=== PATIENT | female | born 2000 | race Caucasian/White ===

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

== ENCOUNTER → 2022-04-15 | Outpatient (CLI) | payer MEDICAID, OTHER ==
[2022-04-15 17:28] LABS: BASO % 0.3 % (0.0-1.0); EOS % 0.3 % (0.0-3.0); HEMATOCRIT 36.2 % (36.0-47.0); HEMOGLOBIN 12.3 g/dl (12.0-15.5); LYMPH # 1.2 10^3/uL (1.5-5.0); MEAN CORPUSCULAR VOLUME 91.2 fl (80.0-96.0); MONO # 0.5 10^3/uL (0.0-0.8); MONO % 5.5 % (2.0-8.0); NEUTROPHILS # 7.5 10^3/uL (1.5-8.5); NEUTROPHILS % 80.6 % (36.0-66.0); PLATELET COUNT, AUTOMATED 267 10^3/uL (150-450); RED BLOOD COUNT 3.97 10^6/uL (4.00-5.40); WHITE BLOOD COUNT 9.3 10^3/uL (4.0-10.0)
[2022-04-15 18:24] LABS: GC DNA AMPLIFICATION NEGATIVE (NEGATIVE)
[2022-04-15 18:53] LABS: HEPATITIS C VIRUS ABY INDEX < 0.0 INDEX (<0.8); HIV 1&2 SCREEN CENTAUR NEGATIVE (NEGATIVE)
== END ==
LOC: M PLALAB 15:21
PROVIDERS: ATTEND Specialist
DX: Z34.01 Encounter for supervision of normal first pregnancy, first trimester (principal)

== ENCOUNTER → 2022-05-31 | Outpatient (CLI) | payer OTHER | LOC: M WHC 14:09 | PROVIDERS: ATTEND Advanced Practice Midwife | DX: Z36.2 Encounter for other antenatal screening follow-up (principal); Z3A.19 19 weeks gestation of pregnancy ==

== ENCOUNTER → 2022-06-25 | Outpatient (REF) | payer OTHER ==
[2022-06-25 18:47] LABS: APPEARANCE, URINE MANUAL CLOUDY (CLEAR); COLOR, URINE MANUAL YELLOW (YELLOW)
[2022-06-25 18:48] LABS: BILIRUBIN, URINE MANUAL NEGATIVE (NEGATIVE); BLOOD URINE MANUAL TRACE (NEGATIVE); GLUCOSE, URINE (UA) MANUAL NEGATIVE (NEGATIVE); KETONE, URINE MANUAL NEGATIVE (NEGATIVE); LEUKOCYTE ESTERASE, URINE MAN POSITIVE (NEGATIVE); NITRITE, URINE MANUAL POSITIVE (NEGATIVE); PROTEIN, URINE MANUAL TRACE mg/dL (NEGATIVE); UROBILINOGEN, URINE MANUAL NORMAL (NORMAL)
[2022-06-25 19:52] LABS: BACTERIA, URINE LARGE AMOUNT; RBC, URINE 0-1 /hpf (0-3); SQUAMOUS EPITHELIAL CELL URINE SMALL AMOUNT /hpf (SMALL AMT); WBC, URINE TNTC /hpf (0-3)
== END ==
LOC: M SFHCWAGY 17:30
PROVIDERS: ATTEND Advanced Practice Midwife
DX: Z34.02 Encounter for supervision of normal first pregnancy, second trimester (principal)

== ENCOUNTER → 2022-07-11 | Outpatient (CLI) | payer OTHER | LOC: M WHC 14:36 | PROVIDERS: ATTEND Advanced Practice Midwife | DX: Z34.02 Encounter for supervision of normal first pregnancy, second trimester (principal) ==

== ENCOUNTER 2022-08-27 23:39 | Observation (INO) | payer OTHER ==
[~2022-08-27] VITALS: Ht 160 cm; Wt 58.3 kg
[2022-08-28] VITALS (12 sets, daily range): BP systolic 107–140; BP diastolic 56–86
[2022-08-28] MEDS ORDERED: TUMS500C PO (00:06)
[2022-08-28] MEDS ORDERED: PRENTAB9 PO (00:06)
[2022-08-28] MEDS ORDERED: HOME MED LIST COMPLETE! XX SCH (00:10)
[2022-08-28 00:51] LABS: APPEARANCE, URINE MANUAL CLEAR (CLEAR); COLOR, URINE MANUAL YELLOW (YELLOW)
[2022-08-28 00:57] LABS: BILIRUBIN, URINE MANUAL NEGATIVE (NEGATIVE); BLOOD URINE MANUAL TRACE (NEGATIVE); GLUCOSE, URINE (UA) MANUAL NEGATIVE (NEGATIVE); KETONE, URINE MANUAL NEGATIVE (NEGATIVE); LEUKOCYTE ESTERASE, URINE MAN TRACE (NEGATIVE); NITRITE, URINE MANUAL NEGATIVE (NEGATIVE); PROTEIN, URINE MANUAL NEGATIVE (NEGATIVE); UROBILINOGEN, URINE MANUAL NORMAL (NORMAL)
[2022-08-28 01:00] LABS: BACTERIA, URINE SMALL AMOUNT; SQUAMOUS EPITHELIAL CELL URINE MOD AMOUNT /hpf (SMALL AMT); TRANSITIONAL EPI CELLS, URINE SMALL AMOUNT /hpf
[2022-08-28 01:01] LABS: HYALINE CAST, URINE NONE SEEN /lpf (0-1); MUCUS, URINE SMALL AMOUNT (NEGATIVE)
[2022-08-28] MEDS ORDERED: BETAMETHASONE SOLUSPAN 6MG/ML 5ML VIAL IM SCH (03:15)
[2022-08-28 05:30] LABS: GC DNA AMPLIFICATION NEGATIVE (NEGATIVE)
[2022-08-28] MEDS ORDERED: ACETAMINOPHEN TAB 650MG DOSE (2X325MG) PO ONE (19:20)
[2022-08-29] MEDS ORDERED: ACET325C5 PO (10:27)
[2022-08-29] MEDS ORDERED: PROG1CAP8 VG (10:37)
== END 2022-08-29 10:38 | disposition home or self-care (01) ==
LOC: M LDO 23:39 → M LDI 23:40 → M LDO 08-28 03:11 → UNDOADMOB 08-28 03:12 → M LDI 08-28 03:12 → M LDO 08-28 03:12 → M LDI 08-28 19:27 → UNDODISOB 08-29 10:38
PROVIDERS: ADMIT Obstetrics & Gynecology; ATTEND Obstetrics & Gynecology
DX: O26.873 Cervical shortening, third trimester (principal); O60.03 Preterm labor without delivery, third trimester; Z3A.31 31 weeks gestation of pregnancy
CPT/HCPCS: 59025; 76815; 76820; 81000; 82731; 87081; 87086; 87810; 87850; 96372; G0463; J0702

== ENCOUNTER 2022-08-29 10:05 | Outpatient (CLI) | payer OTHER ==
[~2022-08-29] VITALS: Ht 160 cm; Wt 58.8 kg
[~2022-08-29 10:05] MED LIST: PRENTAB9 PO; TUMS500C PO
[2022-08-29 10:19] VITALS: BP 127/59
[2022-08-29] MEDS ORDERED: BETAMETHASONE SOLUSPAN 6MG/ML 5ML VIAL IM ONE (10:20)
[2022-08-29] MEDS ORDERED: ACET325C5 PO (10:27)
[2022-08-29] MEDS ORDERED: PROG1CAP8 VG (10:37)
== END 2022-08-29 10:42 | disposition home or self-care (01) ==
LOC: M LDO 10:05
PROVIDERS: ATTEND Obstetrics & Gynecology
DX: O26.873 Cervical shortening, third trimester (principal); Z3A.31 31 weeks gestation of pregnancy
CPT/HCPCS: 59025; 96372; G0463

== ENCOUNTER 2022-09-08 01:46 | Outpatient (CLI) | payer OTHER ==
[~2022-09-08] VITALS: Ht 162.6 cm; Wt 57.8 kg
[~2022-09-08 01:46] MED LIST changes: +ACET325C5 PO; +PROG1CAP8 VG
[2022-09-08 02:16] VITALS: BP 114/68
== END 2022-09-08 03:50 | disposition home or self-care (01) ==
LOC: M LDO 01:46
PROVIDERS: ATTEND Obstetrics & Gynecology
DX: O26.893 Other specified pregnancy related conditions, third trimester (principal); R10.2 Pelvic and perineal pain; M54.50 Low back pain, unspecified; O26.872 Cervical shortening, second trimester; Z3A.32 32 weeks gestation of pregnancy
CPT/HCPCS: 59025; 76815; G0463

== ENCOUNTER → 2022-09-12 | Outpatient (CLI) | payer OTHER ==
[2022-09-12 13:48] LABS: HEMATOCRIT 33.1 % (36.0-47.0); HEMOGLOBIN 10.7 g/dl (12.0-15.5); MEAN CORPUSCULAR HGB CONC 32.3 g/dl (32.0-36.5); MEAN CORPUSCULAR VOLUME 92.7 fl (80.0-96.0); PLATELET COUNT, AUTOMATED 199 10^3/uL (150-450); RED BLOOD COUNT 3.57 10^6/uL (4.00-5.40); WHITE BLOOD COUNT 8.6 10^3/uL (4.0-10.0)
== END ==
LOC: M PLALAB 11:01
PROVIDERS: ATTEND Advanced Practice Midwife
DX: Z34.02 Encounter for supervision of normal first pregnancy, second trimester (principal)

== ENCOUNTER 2022-09-25 07:24 | Inpatient (IN) | payer OTHER ==
[~2022-09-25] VITALS: Ht 162.6 cm; Wt 58.9 kg
[2022-09-25] VITALS (32 sets, daily range): BP systolic 109–172; BP diastolic 60–99
[2022-09-25] MEDS ORDERED: ROBI1LIQ9 PO (07:50)
[2022-09-25] MEDS ORDERED: LACTATED RINGER'S 1000 ML IV STA (08:06)
[2022-09-25] MEDS ORDERED: CARBOPROST TROMETHAMINE 250 MCG/ML AMP IM PRN (08:10)
[2022-09-25] MEDS ORDERED: OXYTOCIN DRIP 30 UNITS in IV 1 EA IV PRN ×4 (08:10)
[2022-09-25] MEDS ORDERED: LIDOCAINE 1% MDV 20ML VIAL INFIL PRN (08:10)
[2022-09-25] MEDS ORDERED: METHYLERGONOVINE MALEATE 0.2MG/ML 1ML VIAL IM PRN (08:10)
[2022-09-25] MEDS ORDERED: OXYTOCIN INJ 10UNITS/ML 1ML VIAL IM PRN (08:10)
[2022-09-25] MEDS ORDERED: TRANEXAMIC ACID INJection 1,000 MG in NS 100 ML IV PRN (08:10)
[2022-09-25] MEDS ORDERED: BETAMETHASONE SOLUSPAN 6MG/ML 5ML VIAL IM ONE (08:15)
[2022-09-25] MEDS ORDERED: HOME MED LIST COMPLETE! XX SCH (08:20)
[2022-09-25 09:04] LABS: HEMATOCRIT 34.6 % (36.0-47.0); HEMOGLOBIN 11.6 g/dl (12.0-15.5); MEAN CORPUSCULAR HEMOGLOBIN 30.5 pg (27.0-33.0); MEAN CORPUSCULAR HGB CONC 33.5 g/dl (32.0-36.5); MEAN CORPUSCULAR VOLUME 91.1 fl (80.0-96.0); PLATELET COUNT, AUTOMATED 190 10^3/uL (150-450); WHITE BLOOD COUNT 7.1 10^3/uL (4.0-10.0)
[2022-09-25] MEDS: LR 1,000 ML IV SCH ×2 (10:06→16:02)
[2022-09-25] MEDS ORDERED: ePHEDrine SULFATE 25 MG/5 ML(5MG/ML) SYRINGE IVP PRN (10:25)
[2022-09-25] MEDS ORDERED: LR 500 ML IV PRN (10:25)
[2022-09-25] MEDS ORDERED: diphenhydrAMINE 50MG/ML VIAL IV PRN (10:25)
[2022-09-25] MEDS ORDERED: NALOXONE INJ 0.4MG/1ML VIAL IV PRN (10:25)
[2022-09-25] MEDS ORDERED: ONDANSETRON 4MG 2ML VIAL IV PRN (10:25)
[2022-09-25] MEDS ORDERED: EPIDURAL/PCA KEYS XX PRN (10:25)
[2022-09-25] MEDS ORDERED: FENTANYL 2MCG/ML ROPIVACAINE 0.2% IN 0.9% NACL 100ML IVBAG As Ordered ONE (10:37)
[2022-09-25] MEDS: FENTANYL/ROPIVACAINE/NACL BAG 100 ML EPIDURAL SCH ×2 (10:42→16:02)
[2022-09-25] MEDS ORDERED: PEN G POT 3,000,000 UNIT/50 ML 3,000,000 UNIT in IV 1 EA IV SCH (12:10)
[2022-09-25] MEDS ORDERED: ACETAMINOPHEN TAB 650MG DOSE (2X325MG) PO PRN (19:20)
[2022-09-25] MEDS ORDERED: OXYTOCIN DRIP 30 UNITS in IV 1 EA IV SCH (19:20)
[2022-09-25] MEDS ORDERED: RHOGAM 300MCG (1500IU) INJ IM SCH (19:20)
[2022-09-25] MEDS ORDERED: DIBUCAINE 1% OINTMENT 30GM TOP PRN (19:20)
[2022-09-25] MEDS ORDERED: DOCUSATE SODIUM 100MG CAPSULE PO PRN (19:20)
[2022-09-25] MEDS ORDERED: METHYLERGONOVINE MALEATE 0.2 MG TAB PO PRN (19:20)
[2022-09-25] MEDS ORDERED: IBUPROFEN 600MG TAB PO PRN (19:20)
[2022-09-25] MEDS: IBUPROFEN 800 MG TAB PO PRN (19:32)
[2022-09-26] MEDS: ACETAMINOPHEN 500 MG TAB PO PRN ×2 (00:11→08:30)
[2022-09-26 06:00] VITALS: BP 120/78
[2022-09-26] MEDS: IBUPROFEN 800 MG TAB PO PRN (08:30)
[2022-09-26] MEDS: PRENATAL VITAMINS CHEWABLE TABLET PO SCH (08:58)
[2022-09-26] MEDS ORDERED: INFLUENZA QUADRIVALENT PF VACCINE 0.5ML SYRINGE IM.IMMUN ONE (09:00)
[2022-09-26 18:00] VITALS: BP 108/68
[2022-09-27 06:00] VITALS: BP 123/68
[2022-09-27 07:15] VITALS: BP 114/72
[2022-09-27] MEDS: PRENATAL VITAMINS CHEWABLE TABLET PO SCH (08:51)
[2022-09-27] MEDS ORDERED: MEASLES,MUMPS,RUBELLA VACCINE INJ (MMR-II) SC.IMMUN ONE (09:00)
== END 2022-09-27 11:40 | disposition home or self-care (01) | DRG 560 ==
LOC: M LDO 07:24 → M LDI 08:02 → M OBS 20:31
PROVIDERS: ADMIT Advanced Practice Midwife; ATTEND Advanced Practice Midwife
PROC: 10E0XZZ Delivery of Products of Conception, External Approach (ICD-10-PCS; principal; 2022-09-25)
PROC: 0HQ9XZZ Repair Perineum Skin, External Approach (ICD-10-PCS; 2022-09-25)
PROC: 10907ZC Drainage of Amniotic Fluid, Therapeutic from Products of Conception, Via Natural or Artificial Opening (ICD-10-PCS; 2022-09-25)
DX: O60.23X0 Term delivery with preterm labor, third trimester, not applicable or unspecified (principal); O70.0 First degree perineal laceration during delivery; Z3A.35 35 weeks gestation of pregnancy; Z37.0 Single live birth

== ENCOUNTER → 2023-08-12 | Outpatient (REF) | payer OTHER ==
[~2023-08-12] MED LIST changes: +ROBI1LIQ9 PO
== END ==
LOC: M PLALAB 15:58
PROVIDERS: ATTEND Specialist
DX: R30.0 Dysuria (principal)

== ENCOUNTER → 2023-09-04 | Outpatient (CLI) | payer OTHER | LOC: M WHC 14:28 | PROVIDERS: ATTEND Advanced Practice Midwife | DX: O09.893 Supervision of other high risk pregnancies, third trimester (principal); Z3A.29 29 weeks gestation of pregnancy ==

== ENCOUNTER → 2023-09-13 | Outpatient (REF) | payer OTHER | LOC: M LAB REF 17:45 | PROVIDERS: ATTEND Physician Assistant Medical | DX: B34.9 Viral infection, unspecified (principal) ==

== ENCOUNTER 2023-09-28 01:14 | Inpatient (IN) | payer OTHER ==
[~2023-09-28] VITALS: Ht 162.6 cm; Wt 55.7 kg
[2023-09-28] VITALS (45 sets, daily range): BP systolic 94–148; BP diastolic 55–88; O2SAT 99–100
[2023-09-28] MEDS ORDERED: METHYLERGONOVINE MALEATE 0.2MG/ML 1ML VIAL IM PRN (02:20)
[2023-09-28] MEDS ORDERED: CARBOPROST TROMETHAMINE 250 MCG/ML AMP IM PRN (02:20)
[2023-09-28] MEDS ORDERED: OXYTOCIN DRIP 30 UNITS in IV 1 EA IV PRN (02:20)
[2023-09-28] MEDS: NIFEdipine 10 MG CAP PO ONE ×2 (02:34→04:36)
[2023-09-28] MEDS: BETAMETHASONE SOLUSPAN 6MG/ML 5ML VIAL IM SCH (02:36)
[2023-09-28] MEDS: PENICILLIN G POTASSIUM 5 MU IV 5 MU in D5W MINI-BAG PLUS 100 ML IV ONE (02:38)
[2023-09-28 02:45] LABS: HEMATOCRIT 27.8 % (36.0-47.0); HEMOGLOBIN 8.8 g/dl (12.0-15.5); MEAN CORPUSCULAR HEMOGLOBIN 27.1 pg (27.0-33.0); MEAN CORPUSCULAR HGB CONC 31.7 g/dl (32.0-36.5); MEAN CORPUSCULAR VOLUME 85.5 fl (80.0-96.0); PLATELET COUNT, AUTOMATED 265 10^3/uL (150-450); RED BLOOD COUNT 3.25 10^6/uL (4.00-5.40)
[2023-09-28] MEDS ORDERED: diphenhydrAMINE 50MG/ML VIAL IV PRN (03:15)
[2023-09-28] MEDS ORDERED: ePHEDrine SULFATE 25 MG/5 ML(5MG/ML) SYRINGE IVP PRN (03:15)
[2023-09-28] MEDS ORDERED: EPIDURAL/PCA KEYS XX PRN (03:15)
[2023-09-28] MEDS ORDERED: ONDANSETRON 4MG 2ML VIAL IV PRN (03:15)
[2023-09-28] MEDS ORDERED: NALOXONE INJ 0.4MG/1ML VIAL IV PRN (03:15)
[2023-09-28] MEDS: FENTANYL/ROPIVACAINE/NACL BAG 100 ML EPIDURAL SCH (03:19)
[2023-09-28] MEDS: LR 500 ML IV PRN (03:22)
[2023-09-28 03:36] LABS: HIV 1&2 SCREEN NEGATIVE (NEGATIVE)
[2023-09-28] MEDS: PEN G POT 3,000,000 UNIT/50 ML 3,000,000 UNIT in IV 1 EA IV SCH (06:42)
[2023-09-28] MEDS: LR 1,000 ML IV SCH (08:26)
[2023-09-28 09:34] LABS: CORD GAS ABE A -3.3; CORD GAS ABE V -1.2; CORD GAS HCO3 A 25.1 MMOL/L; CORD GAS O2 SAT A 25.4 %; CORD GAS O2 SAT V 66.4 %; CORD GAS PCO2 A 58.9 mmHg; CORD GAS PCO2 V 41.8 mmHg; CORD GAS PH A 7.247 UNITS; CORD GAS PH V 7.376 UNITS; CORD GAS PO2 A 14.5 mmHg; CORD GAS PO2 V 26.4 mmHg; CORD GAS SBC V 22.8 MMOL/L; CORD GAS TCO2 A 26.9 MMOL/L; CORD GAS TCO2 V 25.2 MMOL/L
[2023-09-28] MEDS: TRANEXAMIC ACID INJection 1,000 MG in NS 100 ML IV PRN (09:39)
[2023-09-28] MEDS: OXYTOCIN DRIP 30 UNITS in IV 1 EA IV PRN (09:39)
[2023-09-28] MEDS ORDERED: METHYLERGONOVINE MALEATE 0.2 MG TAB PO PRN (09:40)
[2023-09-28] MEDS ORDERED: DIBUCAINE 1% OINTMENT 30GM TOP PRN (09:40)
[2023-09-28] MEDS ORDERED: DOCUSATE SODIUM 100MG CAPSULE PO PRN (09:40)
[2023-09-28] MEDS: OXYTOCIN DRIP 30 UNITS in IV 1 EA IV SCH (10:30)
[2023-09-28] MEDS: IBUPROFEN 600MG TAB PO PRN (10:37)
[2023-09-28] MEDS: PRENATAL VITAMINS CHEWABLE TABLET PO SCH (10:37)
[2023-09-28] MEDS: ACETAMINOPHEN 500 MG TAB PO PRN (10:37)
[2023-09-29 06:00] VITALS: BP 122/59; O2SAT 99
[2023-09-29 06:59] LABS: HEMATOCRIT 24.4 % (36.0-47.0); HEMOGLOBIN 7.7 g/dl (12.0-15.5); MEAN CORPUSCULAR HEMOGLOBIN 27.2 pg (27.0-33.0); MEAN CORPUSCULAR HGB CONC 31.6 g/dl (32.0-36.5); MEAN CORPUSCULAR VOLUME 86.2 fl (80.0-96.0); PLATELET COUNT, AUTOMATED 225 10^3/uL (150-450); RED BLOOD COUNT 2.83 10^6/uL (4.00-5.40); WHITE BLOOD COUNT 12.1 10^3/uL (4.0-10.0)
[2023-09-29] MEDS: BOOSTRIX VACCINE (TETANUS/DIPHTH/ACEL. PERTUSSIS) 0.5ML SYR IM.IMMUN ONE (12:29)
[2023-09-29 18:00] VITALS: BP 119/67; O2SAT 99
[2023-09-30 06:00] VITALS: BP 114/56; O2SAT 98
[2023-09-30] MEDS: MEASLES,MUMPS,RUBELLA VACCINE INJ (MMR-II) SC.IMMUN ONE (07:37)
[2023-09-30] MEDS: RHOGAM 300MCG (1500IU) INJ IM SCH (07:38)
== END 2023-09-30 11:30 | disposition home or self-care (01) | DRG 560 ==
LOC: M LDO 01:14 → M LDI 02:16 → M OBS 11:42
PROVIDERS: ADMIT Obstetrics & Gynecology; ATTEND Obstetrics & Gynecology
PROC: 10E0XZZ Delivery of Products of Conception, External Approach (ICD-10-PCS; principal; 2023-09-28)
PROC: 10907ZC Drainage of Amniotic Fluid, Therapeutic from Products of Conception, Via Natural or Artificial Opening (ICD-10-PCS; 2023-09-28)
DX: O60.14X0 Preterm labor third trimester with preterm delivery third trimester, not applicable or unspecified (principal); O45.93 Premature separation of placenta, unspecified, third trimester; O32.6XX0 Maternal care for compound presentation, not applicable or unspecified; Z3A.33 33 weeks gestation of pregnancy; O69.81X0 Labor and delivery complicated by cord around neck, without compression, not applicable or unspecified; Z37.0 Single live birth

== ENCOUNTER 2024-04-17 21:25 | Emergency (ER) | payer OTHER ==
[~2024-04-17] VITALS: Ht 162.6 cm; Wt 45.4 kg
[2024-04-17 21:32] VITALS: BP 106/64; TEMP 98.2; O2SAT 99
== END 2024-04-18 01:30 | disposition left against medical advice (07) ==
LOC: M ED 21:25
DX: Z53.21 Procedure and treatment not carried out due to patient leaving prior to being seen by health care provider (principal)

== ENCOUNTER 2024-09-28 20:53 | Outpatient (CLI) | payer OTHER ==
[2024-09-28 21:37] LABS: KETONE, URINE MANUAL REFLEX NEGATIVE (NEGATIVE); NITRITE, URINE MANUAL RFX NEGATIVE (NEGATIVE); PROTEIN, URINE MANUAL REFLEX TRACE mg/dL (NEGATIVE); SP GRAVITY,URINE MANUAL REFLEX 1.015 (1.002-1.035); UROBILINOGEN, UA MANUAL REFLEX 1 MG mg/dl (NORMAL)
[2024-09-28 21:51] LABS: SQUAMOUS EPITHELIAL URINE RFX LARGE AMOUNT /hpf (SMALL AMT)
[2024-09-28 21:52] LABS: HYALINE CAST, URINE RFX 0-1 /lpf (0-1); MICROSCOPIC EXAM RFX PERFORMED; MUCUS, URINE REFLEX LARGE AMOUNT (NEGATIVE)
== END 2024-09-28 22:15 | disposition home or self-care (01) ==
LOC: M LDO 20:53
PROVIDERS: ATTEND Specialist
DX: O26.893 Other specified pregnancy related conditions, third trimester (principal); O32.1XX0 Maternal care for breech presentation, not applicable or unspecified; O09.33 Supervision of pregnancy with insufficient antenatal care, third trimester; R10.84 Generalized abdominal pain; Z87.51 Personal history of pre-term labor; Z3A.30 30 weeks gestation of pregnancy
CPT/HCPCS: 59025; 76815; 81000; 81015; G0463

== ENCOUNTER 2024-10-04 19:24 | Outpatient (CLI) | payer OTHER ==
[~2024-10-04] VITALS: Ht 162.6 cm; Wt 53.6 kg
[2024-10-04 19:39] VITALS: BP 114/62
[2024-10-04 21:00] LABS: AMORPHOUS SEDIMENT SMALL (NEGATIVE); APPEARANCE, URINE HAZY (CLEAR); BACTERIA, URINE AUTO NEGATIVE (NEGATIVE); BILIRUBIN, URINE AUTO NEGATIVE (NEGATIVE); BLOOD, URINE BLOOD NEGATIVE (NEGATIVE); COLOR, URINE YELLOW (YELLOW); GLUCOSE, URINE (UA) AUTO NEGATIVE (NEGATIVE); KETONE, URINE AUTO NEGATIVE (NEGATIVE); LEUKOCYTE ESTERASE, URINE AUTO NEGATIVE (NEGATIVE); MUCUS, URINE SMALL (NEGATIVE); NITRITE, URINE AUTO NEGATIVE (NEGATIVE); PROTEIN, URINE AUTO NEGATIVE (NEGATIVE); RBC, URINE AUTO 0 /HPF (0-3); SPECIFIC GRAVITY URINE AUTO 1.024 (1.002-1.035); SQUAMOUS EPITHELIAL CELL UR AU 1 /HPF (0-6); WBC, URINE AUTO 0 /HPF (0-3)
== END 2024-10-04 20:50 | disposition home or self-care (01) ==
LOC: M LDO 19:24
PROVIDERS: ATTEND Advanced Practice Midwife
DX: O47.03 False labor before 37 completed weeks of gestation, third trimester (principal); O09.213 Supervision of pregnancy with history of pre-term labor, third trimester; Z3A.31 31 weeks gestation of pregnancy
CPT/HCPCS: 59025; 81001; 87081; 87086; G0463

== ENCOUNTER 2024-10-26 14:06 | Outpatient (CLI) | payer OTHER ==
[~2024-10-26] VITALS: Ht 165.1 cm; Wt 54.2 kg
[~2024-10-26 14:06] MED LIST changes: -ALBUTEROL SULFATE 2.5MG/0.5ML INH NEB SOLN INH PRN; -EPINEPHrine INJ 1 MG/ML 1ML AMP IM PRN; -LEXA1TAB PO; -diphenhydrAMINE 50MG/ML VIAL IV PRN; -methylPREDNISolone 125MG 2ML VIAL IV PRN
[2024-10-26 14:28] VITALS: BP 98/57
[2024-10-26] MEDS ORDERED: LEXA1TAB PO (14:30)
[2024-10-26] MEDS ORDERED: HOME MED LIST COMPLETE! XX SCH (14:30)
[2024-10-26] MEDS: LR 1,000 ML IV SCH (14:50)
[2024-10-26 15:11] VITALS: BP 97/54
[2024-10-26] MEDS: LACTATED RINGER'S 1000 ML IV STA (15:29)
[2024-10-26 18:56] LABS: HEMOGLOBIN 9.6 g/dl (12.0-15.5); MEAN CORPUSCULAR HEMOGLOBIN 25.1 pg (27.0-33.0); MEAN CORPUSCULAR VOLUME 81.2 fl (80.0-96.0); PLATELET COUNT, AUTOMATED 281 10^3/uL (150-450); RED BLOOD COUNT 3.82 10^6/uL (4.00-5.40); WHITE BLOOD COUNT 13.9 10^3/uL (4.0-10.0)
[2024-10-26 19:35] LABS: HIV 1&2 SCREEN NEGATIVE (NEGATIVE)
[2024-10-26 19:44] LABS: HEPATITIS C VIRUS ABY INDEX 0.04 INDEX (<0.8)
== END 2024-10-26 19:35 | disposition home or self-care (01) ==
LOC: M LDO 14:06
PROVIDERS: ATTEND Specialist
DX: O99.283 Endocrine, nutritional and metabolic diseases complicating pregnancy, third trimester (principal); O21.2 Late vomiting of pregnancy; O32.1XX0 Maternal care for breech presentation, not applicable or unspecified; O09.33 Supervision of pregnancy with insufficient antenatal care, third trimester; O09.213 Supervision of pregnancy with history of pre-term labor, third trimester; O26.893 Other specified pregnancy related conditions, third trimester; O99.013 Anemia complicating pregnancy, third trimester; O9A.213 Injury, poisoning and certain other consequences of external causes complicating pregnancy, third trimester; T50.995A Adverse effect of other drugs, medicaments and biological substances, initial encounter; E86.0 Dehydration; R25.2 Cramp and spasm; D50.9 Iron deficiency anemia, unspecified; Z3A.34 34 weeks gestation of pregnancy; Z87.891 Personal history of nicotine dependence; Y92.9 Unspecified place or not applicable; Y93.9 Activity, unspecified; Y99.9 Unspecified external cause status
CPT/HCPCS: 59025; 85027; 86780; 86803; 86850; 86900; 86901; 87340; 87389; G0463

== ENCOUNTER → 2024-10-26 | Outpatient (CLI) | payer OTHER ==
[~2024-10-26] VITALS: Ht 162.6 cm; Wt 54.0 kg
[~2024-10-26] MED LIST changes: +ALBUTEROL SULFATE 2.5MG/0.5ML INH NEB SOLN INH PRN; +EPINEPHrine INJ 1 MG/ML 1ML AMP IM PRN; +LEXA1TAB PO; +diphenhydrAMINE 50MG/ML VIAL IV PRN; +methylPREDNISolone 125MG 2ML VIAL IV PRN
[2024-10-26 08:00] VITALS: BP 127/68; O2SAT 100
[2024-10-26] MEDS: IRON SUCROSE 500 MG in NS 250 ML OVER 4 HRS IV ONE (08:49)
[2024-10-26 10:00] VITALS: BP 108/55; O2SAT 98
[2024-10-26 11:00] VITALS: BP 110/61; O2SAT 97
[2024-10-26 12:00] VITALS: BP 114/70; O2SAT 99
[2024-10-26 13:09] VITALS: BP 112/58; O2SAT 97
== END ==
LOC: M INFU 07:46
PROVIDERS: ATTEND Specialist
DX: D64.9 Anemia, unspecified (principal)
CPT/HCPCS: 96365; 96366; J1756

== ENCOUNTER 2024-10-30 18:41 | Outpatient (CLI) | payer OTHER ==
[~2024-10-30] VITALS: Ht 165.1 cm; Wt 55.3 kg
[~2024-10-30 18:41] MED LIST changes: +LEXA1TAB PO
[2024-10-30 18:55] VITALS: BP 104/64
[2024-10-30 20:48] LABS: KETONE, URINE AUTO RFX NEGATIVE (NEGATIVE); LEUKOCYTE ESTERASE UR AUTO RFX NEGATIVE (NEGATIVE); MUCUS, URINE RFX LARGE (NEGATIVE); NITRITE, URINE AUTO RFX NEGATIVE (NEGATIVE); RBC, URINE AUTO RFX 2 /HPF (0-3); SQUAM EPITHELIAL CELL UR AURFX 2 /HPF (0-6); WBC, URINE AUTO RFX 2 /HPF (0-3)
[2024-10-30 21:11] VITALS: BP 99/52
[2024-10-30] MEDS: ONDANSETRON 4MG ORAL DISINTEGRATING TAB PO ONE (21:24)
== END 2024-10-30 21:13 | disposition home or self-care (01) ==
LOC: M LDO 18:41
PROVIDERS: ATTEND Obstetrics & Gynecology
DX: O26.893 Other specified pregnancy related conditions, third trimester (principal); O09.213 Supervision of pregnancy with history of pre-term labor, third trimester; O09.33 Supervision of pregnancy with insufficient antenatal care, third trimester; R11.0 Nausea; R42 Dizziness and giddiness; Z3A.35 35 weeks gestation of pregnancy
CPT/HCPCS: 59025; 81001; G0463

== ENCOUNTER → 2024-11-03 | Outpatient (REF) | payer OTHER | LOC: M SFHCWAGY 17:09 | PROVIDERS: ATTEND Specialist | DX: Z36.85 Encounter for antenatal screening for Streptococcus B (principal); Z3A.36 36 weeks gestation of pregnancy ==

== ENCOUNTER 2024-11-08 00:33 | Outpatient (CLI) | payer OTHER ==
[~2024-11-08] VITALS: Ht 162.6 cm; Wt 54.4 kg
[2024-11-08 00:48] VITALS: BP 99/65
[2024-11-08] MEDS: FAMOTIDINE 20 MG TAB PO ONE (01:43)
[2024-11-08] MEDS ORDERED: HOME MED LIST COMPLETE! XX SCH (01:45)
[2024-11-08 05:58] VITALS: BP 108/75
[2024-11-16] MEDS ORDERED: ACET-683 PO (08:24)
== END 2024-11-08 06:20 | disposition home or self-care (01) ==
LOC: M LDO 00:33
PROVIDERS: ATTEND Specialist
DX: O47.03 False labor before 37 completed weeks of gestation, third trimester (principal); O09.213 Supervision of pregnancy with history of pre-term labor, third trimester; O32.1XX0 Maternal care for breech presentation, not applicable or unspecified; O09.33 Supervision of pregnancy with insufficient antenatal care, third trimester; Z3A.36 36 weeks gestation of pregnancy
CPT/HCPCS: 59025; G0463

== ENCOUNTER 2024-11-17 22:15 | Inpatient (IN) | payer OTHER ==
[~2024-11-17] VITALS: Ht 162.6 cm; Wt 54.8 kg
[~2024-11-17 22:15] MED LIST changes: +ACET-683 PO
[2024-11-17 22:30] VITALS: BP 111/68
[2024-11-17] MEDS ORDERED: OXYTOCIN INJ 10UNITS/ML 1ML VIAL IM PRN (22:40)
[2024-11-17] MEDS: ceFAZolin SODIUM 2 GM in DEXTROSE 5% (D5W) ADV/MINI-BAG 50 ML IV ONE (22:40)
[2024-11-17] MEDS ORDERED: METHYLERGONOVINE MALEATE 0.2MG/ML 1ML VIAL IM PRN (22:40)
[2024-11-17] MEDS ORDERED: CARBOPROST TROMETHAMINE 250 MCG/ML AMP IM PRN (22:40)
[2024-11-17] MEDS ORDERED: OXYTOCIN DRIP 30 UNITS in IV 1 EA IV PRN (22:40)
[2024-11-17] MEDS: LR 1,000 ML IV SCH ×2 (22:40→23:35)
[2024-11-17] MEDS ORDERED: TRANEXAMIC ACID INJection 1,000 MG in NS 100 ML IV PRN (22:40)
[2024-11-17] MEDS: AZITHROMYCIN INJ 500 MG, VIAL MATE ADAPTER 1 EACH in NS 250 ML IV ONE (22:58)
[2024-11-17] MEDS: BICITRA 30ML SOLN UDC PO ONE (23:02)
[2024-11-17] MEDS: LACTATED RINGER'S 1000 ML IV STA (23:02)
[2024-11-17 23:03] LABS: HEMATOCRIT 33.5 % (36.0-47.0); HEMOGLOBIN 10.7 g/dl (12.0-15.5); MEAN CORPUSCULAR HGB CONC 31.9 g/dl (32.0-36.5); MEAN CORPUSCULAR VOLUME 84.6 fl (80.0-96.0); PLATELET COUNT, AUTOMATED 227 10^3/uL (150-450); RED BLOOD COUNT 3.96 10^6/uL (4.00-5.40); WHITE BLOOD COUNT 6.8 10^3/uL (4.0-10.0)
[2024-11-17] MEDS ORDERED: CALCIUM CARBONATE 500 MG CHEW U/D PO PRN (23:35)
[2024-11-17] MEDS ORDERED: PERCOCET 5MG/325MG TAB PO PRN (23:35)
[2024-11-17] MEDS ORDERED: SIMETHICONE 80MG CHEW TAB PO PRN (23:35)
[2024-11-17] MEDS ORDERED: ONDANSETRON 4MG 2ML VIAL IV PRN (23:35)
[2024-11-17] MEDS ORDERED: MOM 30ML SUSPENSION UDC PO PRN (23:35)
[2024-11-17] MEDS ORDERED: RHOGAM 300MCG (1500IU) INJ IM SCH (23:35)
[2024-11-17] MEDS: OXYTOCIN DRIP 30 UNITS in IV 1 EA IV SCH (23:35)
[2024-11-17] MEDS ORDERED: OXYTOCIN 30UNITS IN 0.9% NaCl 500ML IV BAG As Ordered ONE (23:36)
[2024-11-17] MEDS ORDERED: MORPHINE PRES-FREE INJ 10 MG/10 ML VIAL As Ordered ONE (23:36)
[2024-11-17] MEDS ORDERED: ACETAMINOPHEN 1000MG/100ML IV BAG As Ordered ONE (23:36)
[2024-11-17] MEDS ORDERED: ONDANSETRON 4MG 2ML VIAL As Ordered ONE (23:36)
[2024-11-17] MEDS ORDERED: KETOROLAC 30 MG/ML 1ML VIAL As Ordered ONE (23:36)
[2024-11-17] MEDS ORDERED: ePHEDrine SULFATE 25 MG/5 ML(5MG/ML) SYRINGE As Ordered ONE (23:46)
[2024-11-18] VITALS (10 sets, daily range): BP systolic 92–116; BP diastolic 55–64; TEMP 97.7; O2SAT 97–100
[2024-11-18 00:01] LABS: HIV 1&2 SCREEN NEGATIVE (NEGATIVE)
[2024-11-18 00:08] LABS: HEPATITIS C VIRUS ABY INDEX 0.05 INDEX (<0.8)
[2024-11-18] MEDS ORDERED: IBUP80TA PO (00:40)
[2024-11-18] MEDS ORDERED: COLA100C5 PO (00:40)
[2024-11-18] MEDS: KETOROLAC 30 MG/ML 1ML VIAL IV SCH (05:50)
[2024-11-18 06:33] LABS: HEMATOCRIT 23.8 % (36.0-47.0); MEAN CORPUSCULAR HEMOGLOBIN 27.6 pg (27.0-33.0); MEAN CORPUSCULAR HGB CONC 31.9 g/dl (32.0-36.5); MEAN CORPUSCULAR VOLUME 86.5 fl (80.0-96.0); PLATELET COUNT, AUTOMATED 169 10^3/uL (150-450); RED BLOOD COUNT 2.75 10^6/uL (4.00-5.40); WHITE BLOOD COUNT 10.1 10^3/uL (4.0-10.0)
[2024-11-18 06:35] LABS: HEMOGLOBIN 7.6 g/dl (12.0-15.5)
[2024-11-18] MEDS: LR 1,000 ML IV ONE (06:37)
[2024-11-18] MEDS: PRENATAL VITAMINS CHEWABLE TABLET PO SCH (09:55)
[2024-11-18] MEDS: DOCUSATE SODIUM 100MG CAPSULE PO SCH (09:55)
[2024-11-18] MEDS: FERROUS SULFATE 325MG TAB PO SCH (09:55)
[2024-11-18] MEDS: PERCOCET 5MG/325MG TAB PO PRN (22:05)
[2024-11-19] MEDS: IBUPROFEN 800 MG TAB PO SCH (01:57)
[2024-11-19 02:00] VITALS: BP 98/59; O2SAT 99
[2024-11-19 06:00] VITALS: BP 106/58; O2SAT 98
[2024-11-19] MEDS: BOOSTRIX VACCINE (TETANUS/DIPHTH/ACEL. PERTUSSIS) 0.5ML SYR IM.IMMUN ONE (08:38)
[2024-11-19] MEDS ORDERED: MEASLES,MUMPS,RUBELLA VACCINE INJ (MMR-II) SC.IMMUN ONE (09:00)
[2024-11-19 10:00] VITALS: BP 122/75; O2SAT 96
== END 2024-11-19 13:00 | disposition home or self-care (01) | DRG 540 ==
LOC: M LDO 22:15 → M LDI 22:40 → M OBS 11-18 02:00
PROVIDERS: ADMIT Advanced Practice Midwife; ATTEND Obstetrics & Gynecology
PROC: 0UB70ZZ Excision of Bilateral Fallopian Tubes, Open Approach (ICD-10-PCS; 2024-11-17)
PROC: 10D00Z1 Extraction of Products of Conception, Low, Open Approach (ICD-10-PCS; principal; 2024-11-17 22:42)
DX: O42.02 Full-term premature rupture of membranes, onset of labor within 24 hours of rupture (principal); O32.1XX0 Maternal care for breech presentation, not applicable or unspecified; Z3A.37 37 weeks gestation of pregnancy; Z37.0 Single live birth; Z30.2 Encounter for sterilization

== ENCOUNTER → 2025-03-25 | Outpatient (CLI) | payer OTHER ==
[~2025-03-25] MED LIST changes: +COLA100C5 PO; +IBUP80TA PO
[2025-03-25 10:17] LABS: BASO # 0.1 10^3/uL (0.0-0.2); BASO % 0.7 % (0.0-1.0); EOS # 0.1 10^3/uL (0.0-0.5); EOS % 1.8 % (0.0-3.0); LYMPH # 1.4 10^3/uL (1.5-5.0); LYMPH % 19.8 % (24.0-44.0); MONO # 0.5 10^3/uL (0.0-0.8); MONO % 7.5 % (2.0-8.0); NEUTROPHILS # 4.8 10^3/uL (1.5-8.5); NEUTROPHILS % 69.9 % (36.0-66.0); PLATELET COUNT, AUTOMATED 295 10^3/uL (150-450)
[2025-03-25 10:22] LABS: ESTIMATED AVERAGE GLUCOSE 100.0 MG/DL (60-110)
[2025-03-25 10:48] LABS: ALT/SGPT 19 U/L (7.0-40); AST/SGOT 19 U/L (<34); CALCIUM LEVEL 9.8 MG/DL (8.5-10.1); CARBON DIOXIDE LEVEL 28 MMOL/L (20-31); CHLORIDE LEVEL 106 MMOL/L (98-107); CHOLESTEROL LEVEL 151 MG/DL (<200); CHOLESTEROL RISK RATIO 2.42 (<5); CREATININE FOR GFR 0.72 MG/DL (0.55-1.30); GLOMERULAR FILTRATION RATE > 90.0 (>60); LDL CHOLESTEROL 77.6 MG/DL (<100); NON-HDL-C 88.8 MG/DL; POTASSIUM SERUM 4.3 MMOL/L (3.5-5.1); SODIUM LEVEL 143 MMOL/L (136-145); TRIGLYCERIDES LEVEL 56 MG/DL (<150)
[2025-03-25 10:51] LABS: FREE T4 0.96 NG/DL (0.89-1.76)
== END ==
LOC: M LAB 09:29
DX: Z00.8 Encounter for other general examination (principal)

== ENCOUNTER → 2025-05-05 | Outpatient (REF) | LOC: M PLAIMG 12:37 | PROVIDERS: ATTEND Internal Medicine | DX: R52 Pain, unspecified (principal) ==